=== PATIENT | female | born 1970 | race Caucasian/White ===

== ENCOUNTER 2021-04-10 08:54 | Day surgery (SDC) | payer BC ==
[2021-04-10] MEDS ORDERED: OCTAGAM 10% 60 GM, OCTAGAM 10% 5 GM in Admixture Fee 1 EACH IVPB SCH (09:30)
[2021-04-10] MEDS ORDERED: Sodium Chloride 0.9% 20 ML ONE (09:35)
[2021-04-10] MEDS ORDERED: cloNIDine 0.1 MG TAB PO SCH (10:45)
[2021-04-10 11:59] VITALS: BP 160/91
== END 2021-04-10 13:58 | disposition home or self-care (01) ==
LOC: ONC/OP 08:54
PROVIDERS: ATTEND Psychiatry & Neurology Neurology
DX: G70.00 Myasthenia gravis without (acute) exacerbation (principal); Z88.6 Allergy status to analgesic agent
CPT/HCPCS: 96365; 96366; J1568

== ENCOUNTER 2022-06-02 13:09 | Outpatient (CLI) | payer BC | END 2022-06-02 13:10 | disposition home or self-care (01) | LOC: SCSMRI 13:09 | PROVIDERS: ATTEND Family Medicine | DX: E24.9 Cushing's syndrome, unspecified (principal); G70.00 Myasthenia gravis without (acute) exacerbation | CPT/HCPCS: 70553 ==